=== PATIENT | male | born 1965 | race African-American/Black ===

== ENCOUNTER 2016-08-01 04:12 | Emergency (ER) | payer MEDICARE, OTHER ==
[2016-08-01] MEDS ORDERED: IBUPROFEN 400 MG TAB PO STA (05:11)
--- NOTE | 2016-08-01 05:16 | XR ---
EXAM: XR Chest, 2 Views CLINICAL HISTORY: Chest Pain TECHNIQUE: Frontal and lateral views of the chest. COMPARISON: No relevant prior studies available. FINDINGS: Lungs: Unremarkable. No consolidation. Pleural space: Unremarkable. No pneumothorax. Heart: Unremarkable. No cardiomegaly. Mediastinum: Unremarkable. Bones/joints: Unremarkable. IMPRESSION: Normal chest x-rays.
[2016-08-01] MEDS ORDERED: MORPHINE SULFATE 4 MG/ML SYRINGE IV STA (05:23)
[2016-08-01 05:32] LABS: Basophils % (A) 0 %; CH 32.9; CHCM 34.3; Eosinophils # (A) 0.1 k/uL (0-0.7); Eosinophils % (A) 2 %; HCT 48.1 % (39.0-53.0); HDW 2.47; Luc # (Auto) 0.15; Luc % (Auto) 2; Lymphocytes # (A) 2.8 k/uL (1.0-4.8); Lymphocytes % (A) 37 %; MCH 32.1 pg (25.0-35.0); MCHC 33.3 g/dL (31.0-37.0); MCV 96.5 fL (80.0-100.0); Mean Platelet Volume 7.5; Monocytes # (A) 0.2 k/uL (0-1.0); Monocytes % (A) 3 %; Neutrophils # (A) 4.3 k/uL (1.3-7.7); Neutrophils % (A) 57 %; RBC 4.98 m/uL (4.30-5.90); RDW 13.8 % (11.5-15.5); WBC 7.6 k/uL (3.8-10.6); WBC (Perox) 7.24
[2016-08-01 05:46] LABS: Prothrombin Time 10.4 sec (9.0-12.0)
[2016-08-01 06:00] LABS: ALT 35 U/L (21-72); AST 23 U/L (17-59); Alkaline Phosphatase 96 U/L (38-126); Amylase 95 U/L (30-110); Anion Gap 14 mmol/L; Blood Urea Nitrogen 12 mg/dL (9-20); Calcium 9.9 mg/dL (8.4-10.2); Carbon Dioxide 18 mmol/L (22-30); Chloride 112 mmol/L (98-107); Glucose 99 mg/dL (74-99); Magnesium 2.3 mg/dL (1.6-2.3); Non-African American GFR(MDRD) >60 (>60 ml/min/1.73 sqM); Potassium 4.3 mmol/L (3.5-5.1); Sodium 144 mmol/L (137-145); Total Bilirubin 0.6 mg/dL (0.2-1.3)
--- NOTE | 2016-08-01 06:20 | ED ---
Chest Pain HPI - General Chief Complaint: Chest Pain Stated Complaint: Hypertension/Syncope Time Seen by Provider: 08/01/16 04:26 Source: patient Mode of arrival: wheelchair Limitations: no limitations - History of Present Illness Initial Comments: This patient is a 50-year-old man who presents to be evaluated for some chest pain to the right side of his chest, as well as feeling like he was going to pass out, having palpitations, and a little bit nausea. This all started while he was having argument with a friend of his. Patient does admit to some alcohol. MD Complaint: chest pain -: minutes(s) Onset: other (During argument) Pain Location: right chest Pain Radiation: none Severity: moderate Quality: aching Consistency: constant Improves With: nothing Worsens With: nothing Anginal Symptoms: nausea Other Symptoms: other - Related Data Home Medications Medication Instructions Recorded Confirmed No Known Home Medications [No 08/01/16 08/01/16 Known Home Medications] Allergies Allergy/AdvReac Type Severity Reaction Status Date / Time No Known Allergies Allergy Verified 08/01/16 04:23 Review of Systems ROS Statement: Those systems with pertinent positive or pertinent negative responses have been documented in the HPI. ROS Other: All systems not noted in ROS Statement are negative. Constitutional: Denies: fever, chills, weakness Respiratory: Denies: cough, dyspnea Cardiovascular: Reports: as per HPI, chest pain, palpitations. Denies: orthopnea, syncope Gastrointestinal: Reports: nausea. Denies: abdominal pain, vomiting Genitourinary: Denies: dysuria Musculoskeletal: Denies: back pain Skin: Denies: rash Neurological: Denies: headache, weakness, numbness Psychiatric: Reports: anxiety Past Medical History Past Medical History: GI Bleed History of Any Multi-Drug Resistant Organisms: None Reported Past Surgical History: No Surgical Hx Reported Past Psychological History: Depression Smoking Status: Current every day smoker Past Alcohol Use History: Occasional Past Drug Use History: Marijuana General Exam Limitations: no limitations General appearance: alert, in no apparent distress, appears intoxicated, anxious Head exam: Present: atraumatic, normocephalic, normal inspection Eye exam: Present: normal appearance. Absent: scleral icterus, conjunctival injection ENT exam: Present: normal oropharynx Neck exam: Present: normal inspection Respiratory exam: Present: normal lung sounds bilaterally. Absent: respiratory distress, wheezes, rales, rhonchi Cardiovascular Exam: Present: regular rate, normal rhythm, normal heart sounds. Absent: systolic murmur, diastolic murmur, rubs, gallop GI/Abdominal exam: Present: soft. Absent: distended, tenderness, guarding, rebound Extremities exam: Present: normal inspection, normal capillary refill. Absent: pedal edema, calf tenderness Back exam: Present: normal inspection. Absent: CVA tenderness (R), CVA tenderness (L) Neurological exam: Present: alert Psychiatric exam: Present: anxious Skin exam: Present: warm, dry, intact, normal color. Absent: rash Course Vital Signs 08/01/16 08/01/16 04:18 06:24 Temperature 97.4 F L 98.2 F Pulse Rate 81 69 Respiratory 18 24 Rate Blood Pressure 129/87 100/67 O2 Sat by Pulse 98 95 Oximetry Chest Pain MDM - MDM Patient is a 50-year-old man who presents with atypical chest symptoms, which have started during an argument. Patient is observed in the emergency Department and his symptoms did resolve. Discussed appropriate further care and follow-up as well as return parameters. Disposition Clinical Impression: Chest pain Disposition: HOME SELF-CARE Condition: Fair Instructions: Chest Pain (ED) Referrals: None,Stated [Primary Care Provider] - 1-2 days
[2016-08-01 06:25] VITALS: BP 100/67; PULSE 69; RESP 24; TEMP 98.2
--- NOTE | 2016-08-03 04:56 | CDI ---
Documentation Clarification OP Dear Alf NOLAN MD, Please do addendum to ED report for HPI and physical exam. Thank you, Monae Bran Dock Boss If you have any question, Please contact accounting advisory services manager at [phone] [facility]
== END 2016-08-01 06:34 | disposition home or self-care (01) ==
LOC: EC 04:12
DX: R07.9 Chest pain, unspecified (principal); R55 Syncope and collapse; I10 Essential (primary) hypertension; R11.0 Nausea; R00.2 Palpitations; F17.200 Nicotine dependence, unspecified, uncomplicated; Z53.20 Procedure and treatment not carried out because of patient's decision for unspecified reasons
CPT/HCPCS: 99285; 96374; 36415; 93005; 85379; 80053; 82150; 83690; 83735; 84484; 85025; 85610; 85730; 71020; J2270

== ENCOUNTER → 2016-09-16 | Outpatient (CLI) | payer MEDICARE, OTHER ==
--- NOTE | 2016-09-16 08:45 | US ---
EXAMINATION TYPE: US abdomen complete DATE OF EXAM: 09/16/2016 COMPARISON: NONE CLINICAL HISTORY: R10.84 Abdominal Pain. For 1 year EXAM MEASUREMENTS: Liver Length: 10.6 cm Gallbladder Wall: 0.1 cm CBD: 0.3 cm Spleen: 7.7 cm Right Kidney: 9.9 x 3.8 x 4.2 cm Left Kidney: 10.0 x 4.6 x 4.8 cm Pancreas: wnl Liver: wnl Gallbladder: small non gravity dependent echogenic structure 0.4 x 0.2 x 0.4 cm polyp Evidence for sonographic Frey's sign: No CBD: wnl Spleen: wnl Right Kidney: upper pole probable cyst measuring 1.8 x 1.5 x 2.2 cm although definitive increased th rough transmission cannot be demonstrated. Left Kidney: wnl Upper IVC: wnl Abd Aorta: wnl IMPRESSION: 1. Probable right upper pole renal cyst, although definitive characteristics 6 of a cyst cannot be de monstrated. If there is clinical concern CT renal mass protocol could be performed for further evalua tion. 2. 4 mm gallbladder polyp. No sonographic evidence of cholecystitis.
== END | disposition home or self-care (01) ==
LOC: RADUSWWP 07:08
PROVIDERS: ATTEND Internal Medicine
DX: K82.4 Cholesterolosis of gallbladder (principal)
CPT/HCPCS: 76700

== ENCOUNTER 2018-08-01 20:37 | Emergency (ER) | payer MEDICARE, OTHER ==
[2018-08-01 20:44] VITALS: TEMP 97.8
[2018-08-01] MEDS ORDERED: IBUPROFEN 800 MG TAB PO STA (21:16)
[2018-08-01] MEDS ORDERED: DIAZEPAM 5 MG TAB PO STA (21:16)
--- NOTE | 2018-08-01 21:57 | ED ---
General Adult HPI - General Chief complaint: Back Pain/Injury Stated complaint: Back Pain Time Seen by Provider: 08/01/18 20:54 Source: patient, RN notes reviewed Mode of arrival: ambulatory Limitations: no limitations - History of Present Illness Initial comments: 52-year-old male presents to the emergency department for a chief complaint of right lower back pain radiating into the right leg. Patient states this has been ongoing for the past 5-6 days. States that about 6 days ago he was using a pry bar to pry a piece of metal off of the ground when he felt a sudden spasm and pain in his lower back. States that since that time the pain has been radiating all the way down to his foot. Denies any bladder or bowel changes. Denies any saddle anesthesia or numbness of the groin. Denies any fevers or chills. Denies any history of IV drug abuse. Patient denies any symptoms of weakness in the lower extremities, states any weakness is likely from pain.Patient has no other complaints at this time including shortness of breath, chest pain, abdominal pain, nausea or vomiting, headache, or visual changes. - Related Data Previous Rx's Medication Instructions Recorded predniSONE 50 mg PO DAILY #5 tablet 08/01/18 Allergies Allergy/AdvReac Type Severity Reaction Status Date / Time No Known Allergies Allergy Verified 08/01/18 20:44 Review of Systems ROS Statement: Those systems with pertinent positive or pertinent negative responses have been documented in the HPI. ROS Other: All systems not noted in ROS Statement are negative. Past Medical History Past Medical History: No Reported History History of Any Multi-Drug Resistant Organisms: None Reported Past Surgical History: No Surgical Hx Reported Past Psychological History: Depression Smoking Status: Former smoker Past Alcohol Use History: Occasional Past Drug Use History: Marijuana General Exam Limitations: no limitations General appearance: alert, in no apparent distress Head exam: Present: atraumatic, normocephalic, normal inspection Eye exam: Present: normal appearance, PERRL, EOMI. Absent: scleral icterus, conjunctival injection, periorbital swelling ENT exam: Present: normal exam, mucous membranes moist Neck exam: Present: normal inspection, full ROM. Absent: tenderness, meningismus, lymphadenopathy Respiratory exam: Present: normal lung sounds bilaterally. Absent: respiratory distress, wheezes, rales, rhonchi, stridor Cardiovascular Exam: Present: regular rate, normal rhythm, normal heart sounds. Absent: systolic murmur, diastolic murmur, rubs, gallop, clicks Extremities exam: Present: normal capillary refill (Capillary refill less than 2 seconds, DP pulse 2+ in bilateral lower extremities. Equal warmth bilaterally.), other (Positive straight leg raise test on the right) Back exam: Present: paraspinal tenderness (Patient does have right-sided lumbar paraspinal tenderness.). Absent: CVA tenderness (R), CVA tenderness (L), vertebral tenderness (No significant lumbar spine tenderness.) Neurological exam: Present: alert, oriented X3, CN II-XII intact Psychiatric exam: Present: normal affect, normal mood Course Vital Signs 08/01/18 08/01/18 20:41 22:17 Temperature 97.8 F Pulse Rate 98 62 Respiratory 20 16 Rate Blood Pressure 126/75 O2 Sat by Pulse 98 Oximetry Medical Decision Making - Medical Decision Making 52-year-old male presents to the emergency department for chief complaint of right lower back pain radiating into the right leg. This has been ongoing for about 5-6 days after he used a pry bar to try to pry a piece of metal off the ground. States his back has been spasming since that time. Denies any bladder or bowel changes. Denies any saddle anesthesia. No history of IV drug abuse. No fevers or chills. Denies any weakness in the lower extremities just states it is painful with movement. On exam patient does have a positive straight leg raise test and the right leg. Neurovascular status intact in the bilateral lower extremities. Pain does seem very mechanical on exam. Pain is much better when patient is lying flat but worsened significantly when he stands and sits up. CT lumbar spine was obtained which does show posterior right-sided lateral disc herniation at L3-L4. Also moderate spinal stenosis noted. This could be related to patient's pain. Patient will be given steroids outpatient. Patient will follow-up with Dr. Andre in one to 2 days. He will return here if he has any worsening symptoms. Disposition Clinical Impression: Disc herniation Disposition: HOME SELF-CARE Condition: Good Instructions (If sedation given, give patient instructions): Sciatica (ED) Additional Instructions: Please take steroid as directed. Please follow-up with orthopedics in one to 2 days. You may follow up with primary care as well. If you have any worsening symptoms return here to the emergency department. Prescriptions: predniSONE 50 mg PO DAILY #5 tablet Is patient prescribed a controlled substance at d/c from ED?: No Referrals: Connie Andre DO [Doctor of Osteopathic Medicine] - 1-2 days Cyndi Gottlieb MD [STAFF PHYSICIAN] - 1-2 days Time of Disposition: 22:41
--- NOTE | 2018-08-01 22:03 | CT ---
EXAMINATION TYPE: CT lumbar spine wo con DATE OF EXAM: 08/01/2018 9:47 PM COMPARISON: None HISTORY: Low back pain radiating down bilateral legs. CT DLP: 770.7 mGycm Automated exposure control for dose reduction was used. Unenhanced CT of the lumbar spine was performed. Bone and soft tissue window settings are submitted as well as coronal and sagittal reconstructions. Lumbar vertebra have normal alignment. Disc spaces are fairly normal. Posterior elements are intact. Facet joints are intact. There is no lumbar paraspinal mass. I see no focal bone destruction. There i s posterior lateral disc herniation at L3-4 on the right side impinging on the neural foramen. There is facet arthropathy and spinal stenosis at L3-4 L4-5. The sacroiliac joints appear intact. IMPRESSIO N: There is moderate spinal stenosis at L4-5. Mild spinal stenosis at L3-4. Posterior right-sided latera l disc herniation at L3-4. No fracture.
[2018-08-01 22:19] VITALS: BP 126/75; PULSE 62; RESP 16
[2018-08-01] MEDS ORDERED: HYDROcodone/APAP 5-325MG 1 EACH TAB PO STA (22:50)
== END 2018-08-01 23:03 | disposition home or self-care (01) ==
LOC: EC 20:37
DX: M51.26 Other intervertebral disc displacement, lumbar region (principal); M48.061 Spinal stenosis, lumbar region without neurogenic claudication; Z87.891 Personal history of nicotine dependence
CPT/HCPCS: 72131; 99283